=== PATIENT | female | born 1995 | race Caucasian/White ===

== ENCOUNTER → 2021-05-09 18:50 | Outpatient (CLI) | payer OTHER, SELFPAY | PROVIDERS: PCP Family Medicine; Visit Provider Nurse Practitioner Family | DX: K52.9 Noninfective gastroenteritis and colitis, unspecified (principal) | CPT/HCPCS: 87177 ==

== ENCOUNTER → 2021-05-10 14:00 | Outpatient (CLI) | payer OTHER, SELFPAY ==
[2021-05-10 14:08] LABS: Adenovirus F 40/41, stool Not Detected (NotDetected); Astrovirus Not Detected (NotDetected); Campylobacter Not Detected (NotDetected); Cryptosporidium Not Detected (NotDetected); Cyclospora Cayetanesis Not Detected (NotDetected); Entamoeba histolytica Not Detected (NotDetected); Enteroaggregative E coli Not Detected (NotDetected); Enteropathogenic E coli Not Detected (NotDetected); Enterotoxigenic E coli Not Detected (NotDetected); Giardia lamblia Not Detected (NotDetected); Norovirus Not Detected (NotDetected); Plesimonas Shigalloides, PCR Not Detected (NotDetected); Rotavirus A Not Detected (NotDetected); Salmonella, PCR Not Detected (NotDetected); Sapovirus Not Detected (NotDetected); Shiga-like toxin E coli Not Detected (NotDetected); Shigella Enterovasive E coli Not Detected (NotDetected); Vibrio Cholerae Not Detected (NotDetected); Vibrio, PCR Not Detected (NotDetected); Yersinia Entercolitica, PCR Not Detected (NotDetected)
[2021-05-10 22:07] LABS: Clostridium Difficile A/B, PCR Detected (NotDetected)
== END ==
PROVIDERS: Visit Provider Nurse Practitioner Family
DX: K52.9 Noninfective gastroenteritis and colitis, unspecified (principal); A04.72 Enterocolitis due to Clostridium difficile, not specified as recurrent
CPT/HCPCS: 87045; 87205; 87507

== ENCOUNTER 2021-05-14 11:07 | Emergency (ER) | payer OTHER, SELFPAY ==
[2021-05-14 11:09] VITALS: BP 134/74; PULSE 110; RESP 20; TEMP 37.1; O2SAT 98; BMI 27.2
[2021-05-14 11:29] VITALS: BMI 27.2
[2021-05-14 11:40] LABS: Coronavirus 19, PCR Not Detected (NotDetected); Influenza A, PCR Not Detected (NotDetected); Influenza B, PCR Not Detected (NotDetected)
[2021-05-14 11:52] VITALS: BP 134/72; PULSE 104; O2SAT 92
--- NOTE | 2021-05-14 11:55 | XR_ITS ---
PROCEDURE: XR CHEST 2V CLINICAL HISTORY: sob COMPARISON: No exams were available for comparison FINDINGS: The cardiomediastinal silhouette and pulmonary vascularity are within normal limits. The lungs are clear without infiltrates, suspicious nodules, or pleural effusions. No acute bony abnormalities. IMPRESSION: No acute findings. Dictated by: Caleb Hunt MD 05/14/2021 12:14 Caleb Hunt MD in [place] 05/14/2021 12:14
--- NOTE | 2021-05-14 12:29 | HMH.EDGENADL ---
ED Disposition Clinical Impression: Viral upper respiratory infection Disposition: Home, Self-Care Condition on Discharge: Good Instructions: DI for Viral Upper Respiratory Infection -- Adult, DI for COVID-19 (Suspected or Confirmed ) Additional Instructions: Tylenol or ibuprofen for any fever or pain. Robitussin for cough. Quarantine yourself until follow-up Covid test obtained. I recommend a repeat test in 2 days. COVID-19 Quarantine: Quarantine if you have been in close contact (within 6 feet of someone for a cumulative total of 15 minutes or more over a 24-hour period) with someone who has COVID-19, unless you have been fully vaccinated. People who are fully vaccinated do NOT need to quarantine after contact with someone who had COVID-19 unless they have symptoms. However, fully vaccinated people should get tested 3-5 days after their exposure, even if they don?t have symptoms and wear a mask indoors in public for 14 days following exposure or until their test result is negative. What to do Stay home for 14 days after your last contact with a person who has COVID-19. Watch for fever (100.4?F), cough, shortness of breath, or other symptoms of COVID-19. If possible, stay away from people you live with, especially people who are at higher risk for getting very sick from COVID-19. After quarantine: Watch for symptoms until 14 days after exposure. If you have symptoms, immediately self-isolate and contact your local public health authority or healthcare provider. You may be able to shorten your quarantine Your local public health authorities make the final decisions about how long quarantine should last, based on local conditions and needs. Follow the recommendations of your local public health department if you need to quarantine. Options they will consider include stopping quarantine: After day 10 without testing OR After day 7 after receiving a negative test result (test must occur on day 5 or later) Referrals: Joselyn Barger [Primary Care Provider] - - Critical Care Critical Care Time: No Attestation: On 05/14/21, the high probability of a clinically significant, sudden or life threatening deterioration of the following system(s) required my full and direct attention, intervention and personal management. The time I documented below is in addition to time spent performing reported procedures but includes the following listed in this critical care notation. Medical Decision Making - Amish Inquiry Pt receiving controlled substance: No Vital Signs: 05/14/21 11:09 05/14/21 11:52 Temperature 98.7 F Temperature Source Oral Pulse Rate 104 H Pulse Rate [Radial] 110 H Respiratory Rate 20 Blood Pressure 134/72 Blood Pressure [Right Arm] 134/74 Blood Pressure Mean 87 Blood Pressure Mean [Right Arm] 94 Blood Pressure Position [Right Arm] Sitting 02 Sat by Pulse Oximetry 98 92 L Oxygen Delivery Method Room Air - Lab Data Lab Results 05/14/21 11:35: SARS-CoV-2 (PCR) Not detected, Influenza A Untype (PCR) Not detected, Influenza Type B (PCR) Not detected 05/14/21 12:25: WBC 11.2 H, RBC 4.90, Hgb 13.5, Hct 41.9, MCV 85.4, MCH 27.4, MCHC 32.2, RDW 13.9, Plt Count 249, MPV 9.3, Neut % (Auto) 77.3, Lymph % (Auto) 9.7 L, [place] % (Auto) 8.1, Eos % (Auto) 4.5, Baso % (Auto) 0.4, Neut # (Auto) 8.6 H, Lymph # (Auto) 1.1, [place] # (Auto) 0.9, Eos # (Auto) 0.5 H, Baso # (Auto) 0.1 05/14/21 12:25: Sodium 141, Potassium 3.8, Chloride 106, Carbon Dioxide 27, Anion Gap 11.8, BUN 7, Creatinine 0.70, Estimated Creat Clear 169, Estimated GFR 103, Est GFR ( Amer) 124, Glucose 98, Calcium 9.1, Total Bilirubin 0.4, AST 101 H, ALT 92 H, Alkaline Phosphatase 84, Total Protein 6.6, Albumin 4.0, Globulin 2.6, Albumin/Globulin Ratio 1.5 05/14/21 12:25: Serum HCG, Qual Negative Result diagrams: 05/14/21 12:25 05/14/21 12:25 - Radiology Data #1 Image(s): Chest Image Reviewed: Yes I have reviewed radio
[2021-05-14 12:35] LABS: Basophils # 0.1 K/mm3 (0-0.2); Basophils % 0.4 % (0.1-2.0); Eosinophils # 0.5 K/mm3 (0.0-0.4); Eosinophils % 4.5 % (0.1-12.0); Hematocrit 41.9 % (37.0-47.0); Hemoglobin 13.5 g/dL (12.2-16.2); Lymphocytes # 1.1 K/mm3 (0.7-4.5); Lymphocytes % 9.7 % (10-50); Mean Corpuscular HGB Conc 32.2 g/dL (31.8-35.4); Mean Corpuscular Hemoglobin 27.4 pg (27.0-31.2); Mean Corpuscular Volume 85.4 fl (81-99); Mean Platelet Volume 9.3 fl (7.4-10.4); Monocytes # 0.9 K/mm3 (0.1-1.0); Monocytes % 8.1 % (1.7-9.3); Neutrophils # 8.6 K/mm3 (1.8-7.8); Neutrophils % 77.3 % (37.0-80.0); Platelet Count 249 K/mm3 (142-424); Red Cell Distribution Width 13.9 % (11.5-17.5); White Blood Count 11.2 K/mm3 (4.8-10.8)
[2021-05-14 12:37] LABS: Chloride 106 mmol/L (98-107); Potassium 3.8 mmoL/L (3.5-5.1); Sodium 141 mmol/L (136-145)
[2021-05-14 12:40] LABS: Alanine Aminotransferase 92 U/L (12-78); Albumin/Globulin Ratio 1.5 (1.1-1.8); Alkaline Phosphatase 84 U/L (38-126); Anion Gap 11.8 mEq/L (5-15); Aspartate Amino Transferase 101 U/L (14-36); Bilirubin,Total 0.4 mg/dl (0.2-1.3); Blood Urea Nitrogen 7 mg/dl (7-17); Carbon Dioxide 27 mmol/L (22.0-30.0); Creatinine Clearance Estimated 169 mL/min (50-200); Estimated Glomerular Filt Rate 103 ml/min (>60); GFR (African American) 124 ML/MIN (>60); Globulin 2.6 g/dL (1.3-3.2); Total Protein,Serum 6.6 g/dl (6.3-8.2)
[2021-05-14 12:41] LABS: Calcium 9.1 mg/dl (8.4-10.2); Glucose 98 mg/dl (74-100)
[2021-05-14 12:55] LABS: HCG Qualitative, Serum Negative (Negative)
[2021-05-14 14:24] VITALS: BP 112/74; PULSE 78; RESP 18; TEMP 36.6; O2SAT 98
== END 2021-05-14 14:25 | disposition home or self-care (01) ==
PROVIDERS: Emergency Provider Emergency Medicine; PCP Family Medicine
DX: J06.9 Acute upper respiratory infection, unspecified (principal); Z20.822 Contact with and (suspected) exposure to COVID-19
CPT/HCPCS: 71046; 80053; 84703; 85025; 99283; C9803; U0003; U0005

== ENCOUNTER 2021-05-19 09:41 | Emergency (ER) | payer OTHER, SELFPAY ==
[2021-05-19 10:03] VITALS: BP 115/87; PULSE 107; RESP 18; TEMP 36.8; O2SAT 98; BMI 27.8
[2021-05-19 10:10] VITALS: BP 115/87; PULSE 107; RESP 18; TEMP 36.8; O2SAT 98; BMI 27.8
--- NOTE | 2021-05-19 10:24 | HMH.EDUTC ---
[facility] [place] Disposition Clinical Impression: Allergic reaction Qualifiers: Encounter type: initial encounter Qualified Code(s): T78.40XA - Allergy, unspecified, initial encounter Disposition: Home, Self-Care Condition on Discharge: Good Instructions: DI for Hives, DI for General Allergic Reactions, Famotidine Additional Instructions: Over the counter Benadryl as directed on the package Start oral steriods tomorrow Stop taking Flagyl Follow up with Family Doctor to repeat your diarrhea panel to make sure Cdiff is clear Return if needed Prescriptions: predniSONE [Prednisone 20mg Tab] 20 mg PO BID 5 Days #10 tab Transmission Status: Received by [id number] Referrals: Joselyn Barger [Primary Care Provider] - As needed Medical Decision Making - Amish Inquiry Pt receiving controlled substance: No Amish was queried for this patient: No Vital Signs: 05/19/21 10:03 05/19/21 10:10 05/19/21 11:00 Temperature 98.3 F 98.3 F 98.3 F Temperature Source Oral Oral Pulse Rate 107 H Pulse Rate [Right Radial] 107 H 107 H Respiratory Rate 18 18 18 Blood Pressure 115/87 Blood Pressure [Right Arm] 115/87 115/87 Blood Pressure Mean [Right Arm] 96 96 Blood Pressure Source [Right Arm] Automatic Cuff Automatic Cuff Blood Pressure Position [Right Arm] Sitting Sitting 02 Sat by Pulse Oximetry 98 98 Oxygen Delivery Method Room Air Room Air - Lab Data Lab results reviewed: Yes: I reviewed the patient's lab results. Lab Results 05/19/21 10:31: Urine Color Dark yellow, Urine Appearance Clear, Urine pH 5.5, Ur Specific [place] 1.020, Urine Protein Negative, Urine Glucose (UA) Negative, Urine Ketones Negative, Urine Blood Negative, Urine Nitrate Negative, Urine Bilirubin Negative, Urine Urobilinogen 0.2, Ur Leukocyte Esterase 1+ A, Tst Clinic Negative Orders (Tests/Meds): ED MEDICATIONS Discontinued Medications Generic Name Dose Route Start Last Admin Trade Name Freq PRN Reason Stop Dose Admin Diphenhydramine HCl 25 mg 05/19/21 10:44 05/19/21 10:55 Diphenhydramine 50mg/Ml Vial IM 05/19/21 10:45 25 mg ONCE ONE Administration Famotidine 20 mg 05/19/21 10:44 05/19/21 10:55 Famotidine 20mg Tablet PO 05/19/21 10:45 20 mg ONCE ONE Administration Loratadine 10 mg 05/19/21 10:45 05/19/21 10:55 Loratadine 10mg Tablet PO 05/19/21 10:46 10 mg ONCE ONE Administration Methylprednisolone Sodium Succinate 125 mg 05/19/21 10:44 05/19/21 10:55 Methylprednisolone Sod Succ 125mg Vial IM 05/19/21 10:45 125 mg ONCE ONE Administration ORDERS Category Date Time Status Urine Culture Stat Micro 05/19/21 10:40 Received Medical Decision Narrative: Rash improved after medication [facility] [place] HPI - General Stated complaint: Rash all over body Time Seen by Provider: 05/19/21 10:24 Mode of Arrival: Ambulatory Source of Information: Patient Limitations: No Limitations Description of Symptoms (Recalled from Triage Doc. by RN): PATIENT HAD C-DIFF 7 DAYS AGO AND WAS STARTED ON FLAGYL. THIS MORNING SHE NOTICED A RASH TO CHEST, ARMS, PELVIC AREA AND LEGS. SHE REPORTS SHE HAS TAKEN FLAGYL BEFORE. HEENT Symptoms (Recalled from RN notes): No Resp Symptoms (Recalled from RN notes): No Skin Symptoms (Recalled from RN notes): Yes MS Symptoms (Recalled from RN notes): No Functional Status (Recalled from RN notes): WNL - History of Present Illness Provider Complaint: Patient states that she woke up this morning coved in hives States that she is itching and it has continued to get worse States that she hasnt changed anything at home but has been on Flagyl for Cdiff and not sure if she may be reacting to that but she has taken it in the past without reactions - Related Data Previous Rx's Medication Instructions Recorded predniSONE [Prednisone 20mg 20 mg PO BID 5 Days #10 tab 05/19/21 Tab] Allergies Allergy/AdvReac Type Severity Reaction Status Date / Time
[2021-05-19 10:40] LABS: Apearance,Urine Clear (Clear); Bilirubin,Urine Negative (Negative); Blood, Urine Negative (Negative); Color,Urine Dark Yellow (Yellow); Glucose,Urine (UA) Negative (Negative); Ketones,Urine Negative (Negative); PH,Urine 5.5 (5.0-8.5); Protein,Urine Negative (Negative); UTC Leukocyte Esterase,Urine 1+ (Negative); UTC Nitrate,Urine Negative (Negative); UTC Pregnancy Test, Urine Negative (Negative); Urobilinogen,Urine 0.2 EU/dl (0.2)
[2021-05-19 11:00] VITALS: BP 115/87; PULSE 107; RESP 18; TEMP 36.8; O2SAT 98
== END 2021-05-19 11:15 | disposition home or self-care (01) ==
LOC: ER 09:59 → UTC 10:00
PROVIDERS: Emergency Provider Nurse Practitioner; PCP Family Medicine
DX: T49.0X5A Adverse effect of local antifungal, anti-infective and anti-inflammatory drugs, initial encounter (principal)
CPT/HCPCS: 81003; 81025; 87086; 96372; 99202; G0463

== ENCOUNTER 2021-06-28 18:21 | Emergency (ER) | payer OTHER, SELFPAY ==
[2021-06-28 19:05] VITALS: BP 145/92; PULSE 106; RESP 14; TEMP 37.3; O2SAT 99; BMI 26.5
--- NOTE | 2021-06-28 19:24 | HMH.EDUTC ---
[facility] [place] Disposition Clinical Impression: Dysuria, Interstitial cystitis Disposition: Home, Self-Care Condition on Discharge: Good Instructions: DI for Interstitial Cystitis, DI for Dysuria -- Adult Additional Instructions: Drink plenty of fluids. Take tylenol or ibuprofen for pain or fever. Take the medications as directed. Follow up with your regular doctor. GO TO THE ER FOR ANY WORSENING SYMPTOMS We sent your urine for a culture. This will tell if it is truly an infection of your interstitial cystitis flaring up. The pyridium will make your urine turn orange, this is an expected side effect. It will stain your clothes if it comes into contact with them. Prescriptions: Sulfamethoxazole/Trimethoprim [Bactrim DS tablet] 1 each PO BID 5 Days #10 tab Transmission Status: Pending to [id number] Phenazopyridine HCl [Pyridium 200mg Tablet] 200 pow PO TID #6 tab Transmission Status: Pending to [id number] Referrals: Joselyn Barger [Primary Care Provider] - Time of Disposition: 19:38 Medical Decision Making - Medical Records Medical records reviewed: No: I reviewed the patient's medical records. - Amish Inquiry Pt receiving controlled substance: No Vital Signs: 06/28/21 19:05 Temperature 99.1 F Temperature Source Oral Pulse Rate [Left] 106 H Respiratory Rate 14 Blood Pressure [Left Arm] 145/92 H Blood Pressure Mean [Left Arm] 109 02 Sat by Pulse Oximetry 99 - Lab Data Lab results reviewed: Yes: I reviewed the patient's lab results. Lab Results 06/28/21 19:23: Urine Color Dark yellow, Urine Appearance Turbid, Urine pH 5.5, Ur Specific [place] 1.025, Urine Protein Negative, Urine Glucose (UA) Negative, Urine Ketones Negative, Urine Blood Negative, Urine Nitrate Negative, Urine Bilirubin Negative, Urine Urobilinogen 0.2, Ur Leukocyte Esterase Negative Orders (Tests/Meds): ORDERS Category Date Time Status Urine Culture Stat Micro 06/28/21 19:23 Ordered [facility] [place] HPI - General Stated complaint: possible uti Time Seen by Provider: 06/28/21 19:24 Mode of Arrival: Ambulatory Source of Information: Patient Limitations: No Limitations Description of Symptoms (Recalled from Triage Doc. by RN): pt c/o burning with urination x1 day. HEENT Symptoms (Recalled from RN notes): No Resp Symptoms (Recalled from RN notes): No Skin Symptoms (Recalled from RN notes): No MS Symptoms (Recalled from RN notes): No Functional Status (Recalled from RN notes): wnl - History of Present Illness Provider Complaint: She has had burning and discomfort with urination for the past 1 day. She has a history of interstitial cystitis. She is unsure if she has an infection or it is her interstitial cystitis flaring up. She denies any fever or chills. She does feel bad like she is getting an infection. - Related Data Previous Rx's Medication Instructions Recorded predniSONE [Prednisone 20mg 20 mg PO BID 5 Days #10 tab 05/19/21 Tab] Phenazopyridine HCl [Pyridium 200 pow PO TID #6 tab 06/28/21 200mg Tablet] Sulfamethoxazole/Trimethoprim 1 each PO BID 5 Days #10 tab 06/28/21 [Bactrim DS tablet] Allergies Allergy/AdvReac Type Severity Reaction Status Date / Time clindamycin Allergy Intermediate Rash Verified 05/14/21 11:33 topiramate [From Topamax] Allergy Verified 05/14/21 11:34 - Worker's Comp Is this a Worker's Comp case?: No [facility] History - Hepatitis A Screen Drug use history?: No High risk sexual behaviors?: No History of sexually transmitted infection?: No Currently employed?: No Childcare worker?: No Do you have indoor plumbing?: Yes Do you have electricity?: Yes Attestation statement:: This patient has been screened for Hepatitis A risk factors. I have reviewed the patient's past medical history: Yes ROS Obtained: Yes All systems reviewed & no additional complaints - Constitutional Constitutional: Denies body ache, Denies chills, Denies f
[2021-06-28 19:25] LABS: Apearance,Urine Turbid (Clear); Bilirubin,Urine Negative (Negative); Blood, Urine Negative (Negative); Color,Urine Dark Yellow (Yellow); Glucose,Urine (UA) Negative (Negative); Ketones,Urine Negative (Negative); PH,Urine 5.5 (5.0-8.5); Protein,Urine Negative (Negative); Specific Gravity, Urine 1.025 (1.005-1.030); UTC Leukocyte Esterase,Urine Negative (Negative); UTC Nitrate,Urine Negative (Negative); Urobilinogen,Urine 0.2 EU/dl (0.2)
[2021-06-28 19:53] VITALS: BP 145/92; PULSE 106; RESP 14; TEMP 37.3
== END 2021-06-28 19:55 | disposition home or self-care (01) ==
PROVIDERS: Emergency Provider Nurse Practitioner Family; PCP Family Medicine
DX: N30.10 Interstitial cystitis (chronic) without hematuria (principal)
CPT/HCPCS: 81003; 87086; 99202; G0463

== ENCOUNTER 2021-07-08 08:43 | Emergency (ER) | payer OTHER, SELFPAY ==
--- NOTE | 2021-07-08 09:00 | HMH.EDGENADL ---
ED Disposition Clinical Impression: COVID-19 Disposition: Home, Self-Care Condition on Discharge: Good Referrals: Joselyn Barger [Primary Care Provider] - - Critical Care Critical Care Time: No Attestation: On 07/08/21, the high probability of a clinically significant, sudden or life threatening deterioration of the following system(s) required my full and direct attention, intervention and personal management. The time I documented below is in addition to time spent performing reported procedures but includes the following listed in this critical care notation. Medical Decision Making - Medical Records Medical records reviewed: Yes: I reviewed the patient's medical records. - Amish Inquiry Pt receiving controlled substance: No Vital Signs: 07/08/21 09:10 Temperature 98.3 F Temperature Source Oral Pulse Rate [Right Radial] 105 H Respiratory Rate 18 Blood Pressure [Right Arm] 116/84 Blood Pressure Mean [Right Arm] 94 Blood Pressure Source [Right Arm] Automatic Cuff Blood Pressure Position [Right Arm] Supine 02 Sat by Pulse Oximetry 99 Oxygen Delivery Method Room Air - Lab Data Lab Results 07/08/21 09:27: Urine Color Yellow, Urine Appearance Sl cloudy, Urine pH 6.0, Ur Specific [place] >= 1.030, Urine Protein Negative, Urine Glucose (UA) Negative, Urine Ketones Negative, Urine Blood Trace-i, Urine Nitrate Negative, Urine Bilirubin 1+ A, Urine Urobilinogen 0.2, Ur Leukocyte Esterase Trace, Urine RBC Occasional, Urine WBC Occasional, Ur Squamous Epith Cells None, Urine Bacteria Trace 07/08/21 09:27: Urine HCG, Qual Negative 07/08/21 09:28: SARS-CoV-2 (PCR) Detected A, Influenza A Untype (PCR) Not detected, Influenza Type B (PCR) Not detected Orders (Tests/Meds): ED MEDICATIONS Discontinued Medications Generic Name Dose Route Start Last Admin Trade Name Freq PRN Reason Stop Dose Admin Lactated Ringer's 1,000 mls @ 999 mls/hr 07/08/21 09:15 07/08/21 09:36 Lactated Ringer's 1000 Ml Bag IV 07/08/21 10:15 999 mls/hr .Q1H1M EMELY Administration Promethazine HCl 12.5 mg 07/08/21 09:13 07/08/21 09:34 Promethazine Hcl 25mg/Ml 1ml Vial IV 07/08/21 09:14 12.5 mg ONCE ONE Administration Sodium Chloride 25 ml 07/08/21 09:13 07/08/21 09:34 Sodium Chloride 0.9% 25ml Bag IV 07/08/21 09:14 25 ml ONCE ONE Administration Medical Decision Narrative: Patient is a 25-year-old female presenting with a chief complaint of 4 days of nausea, vomiting and nonbloody diarrhea. Differential diagnosis includes, but is not limited to, infectious diarrhea, inflammatory bowel disease, viral syndrome such as COVID-19. Exam shows a benign, nondistended and nontender abdomen. Patient is mildly tachycardic on exam but otherwise hemodynamically stable. She was given 1 L of IV fluids and IV Phenergan. She was evaluate the UA and urine test and reassessed. Reassessment shows that patient is feeling improved. Testing is positive for COVID-19. Patient was given prescription for p.o. Phenergan, counseled on return precautions and supportive care at home. She was discharged in a stable condition. General Adult HPI - General Stated complaint: vomiting/diarrhea for 4 days Time Seen by Provider: 07/08/21 09:00 - History of Present Illness HPI narrative: Yarelis is a 25yo female with history of interstitial cystitis is presenting for chief complaint of 4 days of nausea, nonbloody vomiting and nonbloody watery diarrhea. Patient states she has not been able to tolerate p.o. intake despite taking Zofran at home. Patient denies fevers, chills, chest pain, dyspnea, or abdominal pain. She states she has some suprapubic discomfort but this is baseline due to her interstitial cystitis. She does have intermittent dysuria but no change from her baseline. She is late on her menstrual cycle. - Related Data Previous Rx's Medication Instructions Recorded predniSONE [Prednisone 20mg 20 mg PO
[2021-07-08 09:10] VITALS: BP 116/84; PULSE 105; RESP 18; TEMP 36.8; O2SAT 99; BMI 26.8
[2021-07-08 09:34] LABS: Microscopic, Urine URINE MICROSCOPIC (MICROSCOPIC)
[2021-07-08 09:36] LABS: Influenza A, PCR Not Detected (NotDetected); Influenza B, PCR Not Detected (NotDetected)
[2021-07-08 09:40] LABS: Appearance,Urine SL CLOUDY (Clear); Blood, Urine TRACE-I (Negative); Color,Urine YELLOW (Yellow); Glucose,Urine (UA) Negative (Negative); Ketones,Urine Negative (Negative); Leukocyte Esterase,Urine TRACE (Negative); Nitrate,Urine Negative (Negative); Protein,Urine Negative (Negative); Specific Gravity, Urine >= 1.030 (1.005-1.030); Urobilinogen,Urine 0.2 EU/dl (0.2)
[2021-07-08 09:41] LABS: Urine Pregnancy, HCG Qual. Negative (Negative)
[2021-07-08 09:45] LABS: Bilirubin,Urine 1+ (Negative)
[2021-07-08 09:52] LABS: Bacteria,Urine Trace /lpf; RBC,Urine Occasional #/hpf (0-3); WBC,Urine Occasional #/hpf (0-3)
[2021-07-08 10:01] LABS: Coronavirus 19, PCR Detected (NotDetected)
[2021-07-08 11:28] VITALS: BP 159/82; PULSE 69; RESP 18; TEMP 36.8; O2SAT 100
== END 2021-07-08 11:28 | disposition home or self-care (01) ==
PROVIDERS: Emergency Provider Emergency Medicine; PCP Family Medicine
DX: U07.1 COVID-19 (principal)
CPT/HCPCS: 81001; 81025; 96365; 99282; C9803; U0003; U0005

== ENCOUNTER → 2021-08-30 12:03 | Outpatient (CLI) | payer OTHER, SELFPAY ==
[2021-08-30 12:20] LABS: Adenovirus F 40/41, stool Not Detected (NotDetected); Astrovirus Not Detected (NotDetected); Campylobacter Not Detected (NotDetected); Cryptosporidium Not Detected (NotDetected); Cyclospora Cayetanesis Not Detected (NotDetected); Entamoeba histolytica Not Detected (NotDetected); Enteroaggregative E coli Not Detected (NotDetected); Enteropathogenic E coli Not Detected (NotDetected); Enterotoxigenic E coli Not Detected (NotDetected); Giardia lamblia Not Detected (NotDetected); Norovirus Not Detected (NotDetected); Plesimonas Shigalloides, PCR Not Detected (NotDetected); Rotavirus A Not Detected (NotDetected); Salmonella, PCR Not Detected (NotDetected); Sapovirus Not Detected (NotDetected); Shiga-like toxin E coli Not Detected (NotDetected); Shigella Enterovasive E coli Not Detected (NotDetected); Vibrio Cholerae Not Detected (NotDetected); Vibrio, PCR Not Detected (NotDetected); Yersinia Entercolitica, PCR Not Detected (NotDetected)
[2021-08-30 13:28] LABS: Occult Blood,Stool Negative (Negative)
[2021-08-30 18:41] LABS: Clostridium Difficile A/B, PCR Detected (NotDetected)
== END ==
PROVIDERS: Visit Provider Nurse Practitioner Family
DX: K52.9 Noninfective gastroenteritis and colitis, unspecified (principal); A04.72 Enterocolitis due to Clostridium difficile, not specified as recurrent
CPT/HCPCS: 82272; 87507; G0328

== ENCOUNTER 2021-09-18 08:32 | Emergency (ER) | payer OTHER, SELFPAY ==
[2021-09-18 08:32] VITALS: BP 153/105; PULSE 98; RESP 18; TEMP 36.9; O2SAT 97; BMI 25.5
--- NOTE | 2021-09-18 09:11 | PC.NURSE ---
Patient ambulatory to restroom
[2021-09-18 09:20] LABS: Microscopic, Urine URINE MICROSCOPIC (MICROSCOPIC)
[2021-09-18 09:23] LABS: Appearance,Urine CLEAR (Clear); Bilirubin,Urine Negative (Negative); Blood, Urine 3+ (Negative); Color,Urine YELLOW (Yellow); Glucose,Urine (UA) Negative (Negative); Ketones,Urine Negative (Negative); Leukocyte Esterase,Urine TRACE (Negative); Nitrate,Urine Negative (Negative); Protein,Urine TRACE (Negative); Specific Gravity, Urine 1.025 (1.005-1.030); Urobilinogen,Urine 0.2 EU/dl (0.2)
--- NOTE | 2021-09-18 09:25 | ECG_ITS ---
APPROVED REPORT Exam: Resting ECG HR:70 bpm ECG Measurements Heart Rate 70 AXES PA 150 P 51 QRSd 99 QRS 1 QT 395 T 4 QTc 415 Conclusion SINUS RHYTHM WITH MARKED SINUS ARRHYTHMIA BORDERLINE ECG UNCONFIRMED REPORT Electronically signed by : Alex Richardson MD 09/18/2021 18:02:23
--- NOTE | 2021-09-18 09:27 | XR_ITS ---
FINAL REPORT CLINICAL HISTORY: chest pain, left arm pain FINDINGS: Two views of the chest were obtained. The heart size and pulmonary vascularity are within normal limits. The mediastinum is normal. No acute pulmonary abnormality is identified. There is no pneumothorax. The bony thorax is intact. IMPRESSION: No active cardiopulmonary disease. Reviewed, Interpreted and Dictated by Gabriel Perez III, MD Transcribed by Wilver Stark Authenticated by Gabriel Perez III, MD on 09/18/2021 10:21:41 AM [facility]
--- NOTE | 2021-09-18 09:27 | PC.NURSE ---
Pt called out to the tech stating she was having chest pain. Assessed the pt who states she got a sharp pain in her left chest that went down her arm causing numbness. EKG and order placed for this new complaint.
[2021-09-18 09:30] VITALS: BP 133/94; PULSE 81; O2SAT 98
[2021-09-18 09:32] LABS: Basophils # 0.1 K/mm3 (0-0.2); Basophils % 0.7 % (0.1-2.0); Eosinophils # 0.2 K/mm3 (0.0-0.4); Eosinophils % 1.9 % (0.1-12.0); Hematocrit 44.6 % (37.0-47.0); Hemoglobin 14.5 g/dL (12.2-16.2); Lymphocytes # 1.6 K/mm3 (0.7-4.5); Lymphocytes % 15.5 % (10-50); Mean Corpuscular HGB Conc 32.5 g/dL (31.8-35.4); Mean Corpuscular Hemoglobin 29.8 pg (27.0-31.2); Mean Corpuscular Volume 91.7 fl (81-99); Mean Platelet Volume 10.2 fl (7.4-10.4); Monocytes # 0.6 K/mm3 (0.1-1.0); Monocytes % 5.5 % (1.7-9.3); Neutrophils # 7.8 K/mm3 (1.8-7.8); Neutrophils % 76.5 % (37.0-80.0); Platelet Count 355 K/mm3 (142-424); Red Blood Count 4.86 M/mm3 (4.20-5.40); Red Cell Distribution Width 14.2 % (11.5-17.5); White Blood Count 10.2 K/mm3 (4.8-10.8)
[2021-09-18 09:38] LABS: Amorphous Sediment,Urine 1+ /lpf; Bacteria,Urine Trace /lpf
--- NOTE | 2021-09-18 09:40 | PC.NURSE ---
Patient to xray with topography technician
--- NOTE | 2021-09-18 09:43 | PC.NURSE ---
pt to xray via wheelchair
[2021-09-18 10:00] VITALS: BP 142/90; PULSE 84; O2SAT 99
[2021-09-18 10:09] LABS: Alanine Aminotransferase 42 U/L (12-78); Albumin Level 4.5 g/dl (3.5-5.0); Albumin/Globulin Ratio 1.6 (1.1-1.8); Alkaline Phosphatase 99 U/L (38-126); Amylase 56 U/L (30-110); Anion Gap 13.7 mEq/L (5-15); Aspartate Amino Transferase 50 U/L (14-36); Bilirubin,Total 0.7 mg/dl (0.2-1.3); Blood Urea Nitrogen 5 mg/dl (7-17); Calcium 9.1 mg/dl (8.4-10.2); Carbon Dioxide 25 mmol/L (22.0-30.0); Chloride 104 mmol/L (98-107); Creatinine Clearance Estimated 138 mL/min (50-200); Estimated Glomerular Filt Rate 88 ml/min (>60); GFR (African American) 107 ML/MIN (>60); Globulin 2.8 g/dL (1.3-3.2); Glucose 113 mg/dl (74-100); Lipase 95 U/L (23-300); Potassium 3.7 mmoL/L (3.5-5.1); Sodium 139 mmol/L (136-145); Total Protein,Serum 7.3 g/dl (6.3-8.2)
--- NOTE | 2021-09-18 10:12 | HMH.EDGENADL ---
ED Disposition Clinical Impression: C. difficile enteritis Disposition: Home, Self-Care Condition on Discharge: Good Instructions: DI for Nausea -- Adult, DI for Diarrhea and Traveler's Diarrhea -- Adult, DI for Clostridioides difficile Infection Additional Instructions: Phenergan as needed for nausea and vomiting. Drink plenty of fluids. Follow-up with your primary care provider for gastroenterology referral, or call Dr. Elizalde for appointment. Prescriptions: Promethazine HCl [Phenergan 25mg tab] 25 mg PO Q6HP PRN #10 tab PRN Reason: Nausea And Vomiting Transmission Status: Pending to [id number] Referrals: Shea Saravia APRN [Primary Care Provider] - Brendna Elizalde [Referring] - - Critical Care Critical Care Time: No Attestation: On 09/18/21, the high probability of a clinically significant, sudden or life threatening deterioration of the following system(s) required my full and direct attention, intervention and personal management. The time I documented below is in addition to time spent performing reported procedures but includes the following listed in this critical care notation. Medical Decision Making - Amish Inquiry Pt receiving controlled substance: No Vital Signs: 09/18/21 08:32 Temperature 98.5 F Temperature Source Oral Pulse Rate [Left Radial] 98 H Respiratory Rate 18 Blood Pressure [Right Arm] 153/105 H Blood Pressure Mean [Right Arm] 121 Blood Pressure Source [Right Arm] Automatic Cuff Blood Pressure Position [Right Arm] Sitting 02 Sat by Pulse Oximetry 97 Oxygen Delivery Method Room Air - Lab Data Lab Results 09/18/21 08:45: WBC 10.2, RBC 4.86, Hgb 14.5, Hct 44.6, MCV 91.7, MCH 29.8, MCHC 32.5, RDW 14.2, Plt Count 355, MPV 10.2, Neut % (Auto) 76.5, Lymph % (Auto) 15.5, [place] % (Auto) 5.5, Eos % (Auto) 1.9, Baso % (Auto) 0.7, Neut # (Auto) 7.8, Lymph # (Auto) 1.6, [place] # (Auto) 0.6, Eos # (Auto) 0.2, Baso # (Auto) 0.1 09/18/21 08:45: Sodium 139, Potassium 3.7, Chloride 104, Carbon Dioxide 25, Anion Gap 13.7, BUN 5 L, Creatinine 0.80, Estimated Creat Clear 138, Estimated GFR 88, Est GFR ( Amer) 107, Glucose 113 H, Calcium 9.1, Total Bilirubin 0.7, AST 50 H, ALT 42, Alkaline Phosphatase 99, Troponin I < 0.01, Total Protein 7.3, Albumin 4.5, Globulin 2.8, Albumin/Globulin Ratio 1.6, Amylase 56, Lipase 95 09/18/21 09:16: Urine Color Yellow, Urine Appearance Clear, Urine pH 6.0, Ur Specific [place] 1.025, Urine Protein Trace, Urine Glucose (UA) Negative, Urine Ketones Negative, Urine Blood 3+, Urine Nitrate Negative, Urine Bilirubin Negative, Urine Urobilinogen 0.2, Ur Leukocyte Esterase Trace, Urine RBC 3-5, Urine WBC 10-20, Ur Squamous Epith Cells 3-5, Amorphous Sediment 1+, Urine Bacteria Trace Result diagrams: 09/18/21 08:45 09/18/21 08:45 Orders (Tests/Meds): ED MEDICATIONS Generic Name Dose Route Start Last Admin Trade Name Freq PRN Reason Stop Dose Admin Sodium Chloride 1,000 mls @ 999 mls/hr 09/18/21 09:30 09/18/21 09:30 Sod Chlor 0.9% 1000ml Bag IV 09/18/21 10:30 999 mls/hr .Q1H1M EMELY Administration Sodium Chloride 10 ml 09/18/21 09:25 Sodium Chloride 0.9% 10ml Flush Syringe IV 10/18/21 09:24 NEEDED PRN Maintain IV Site Discontinued Medications Generic Name Dose Route Start Last Admin Trade Name Freq PRN Reason Stop Dose Admin Ondansetron HCl 4 mg 09/18/21 09:26 09/18/21 09:30 Ondansetron 4mg/2ml Vial IV 09/18/21 09:27 4 mg ONCE ONE Administration ORDERS Category Date Time Status Troponin I Q3H Lab 09/18/21 12:30 Ordered Troponin I Q3H Lab 09/18/21 15:30 Ordered Urine Culture Stat Micro 09/18/21 09:16 Received - ECG Data Tracing #1 EKG interpreted by Kehinde Zuleta MD: Rhythm: sinus with sinus arrhythmia Rate: 70 [place]: normal Ectopy: none Conduction: normal ST Segment Changes: none T Wave Changes: none Q Waves: none No evidence of acute ischemia or injury Elyes
[2021-09-18 10:22] LABS: Troponin I < 0.01 ng/ml (0.00-0.034)
--- NOTE | 2021-09-18 10:22 | PC.NURSE ---
ED MD at for update on POC
[2021-09-18 10:30] VITALS: BP 138/101; PULSE 62; O2SAT 99
[2021-09-18 10:41] VITALS: BP 138/101; PULSE 62; RESP 16; TEMP 36.9; O2SAT 99
== END 2021-09-18 10:47 | disposition home or self-care (01) ==
PROVIDERS: Emergency Provider Emergency Medicine; PCP Nurse Practitioner Family
DX: A04.72 Enterocolitis due to Clostridium difficile, not specified as recurrent (principal); R42 Dizziness and giddiness; R07.9 Chest pain, unspecified
CPT/HCPCS: 71046; 80053; 81001; 82150; 83690; 84484; 85025; 87086; 93005; 96365; 96375; 99284; J2405

== ENCOUNTER → 2021-10-02 13:06 | Outpatient (CLI) | payer OTHER, SELFPAY ==
[2021-10-03 16:13] LABS: C difficile Toxins AB, EIA Negative (Negative)
== END ==
PROVIDERS: Family Medicine; Visit Provider Nurse Practitioner Family
DX: R19.7 Diarrhea, unspecified (principal)
CPT/HCPCS: 87045; 87324

== ENCOUNTER 2022-01-23 20:04 | Emergency (ER) | payer OTHER, SELFPAY ==
[2022-01-23 21:22] VITALS: BP 157/108; PULSE 107; RESP 16; TEMP 36.5; O2SAT 100; BMI 35.7
[2022-01-23 21:38] LABS: Microscopic, Urine URINE MICROSCOPIC (MICROSCOPIC)
[2022-01-23 21:42] LABS: Basophils # 0.1 K/mm3 (0-0.2); Basophils % 0.9 % (0.1-2.0); Eosinophils # 0.5 K/mm3 (0.0-0.4); Eosinophils % 5.2 % (0.1-12.0); Hematocrit 42.1 % (37.0-47.0); Hemoglobin 14.5 g/dL (12.2-16.2); Lymphocytes # 2.8 K/mm3 (0.7-4.5); Lymphocytes % 26.5 % (10-50); Mean Corpuscular HGB Conc 34.3 g/dL (31.8-35.4); Mean Corpuscular Hemoglobin 29.6 pg (27.0-31.2); Mean Corpuscular Volume 86.3 fl (81-99); Mean Platelet Volume 9.2 fl (7.4-10.4); Monocytes # 0.6 K/mm3 (0.1-1.0); Monocytes % 5.6 % (1.7-9.3); Neutrophils # 6.4 K/mm3 (1.8-7.8); Neutrophils % 61.8 % (37.0-80.0); Platelet Count 274 K/mm3 (142-424); Red Blood Count 4.88 M/mm3 (4.20-5.40); Red Cell Distribution Width 13.3 % (11.5-17.5); White Blood Count 10.4 K/mm3 (4.8-10.8)
[2022-01-23 21:44] LABS: Bilirubin,Urine Negative (Negative); Blood, Urine Negative (Negative); Color,Urine YELLOW (Yellow); Glucose,Urine (UA) Negative (Negative); Ketones,Urine Negative (Negative); Leukocyte Esterase,Urine 1+ (Negative); Nitrate,Urine Negative (Negative); Protein,Urine Negative (Negative); Urine Pregnancy, HCG Qual. Negative (Negative); Urobilinogen,Urine 0.2 EU/dl (0.2)
[2022-01-23 21:45] LABS: Appearance,Urine Cloudy (Clear)
[2022-01-23 21:50] LABS: Chloride 108 mmol/L (98-107)
[2022-01-23 21:51] LABS: Potassium 3.9 mmoL/L (3.5-5.1); Sodium 140 mmol/L (136-145)
[2022-01-23 21:52] LABS: Alanine Aminotransferase 32 U/L (12-78); Aspartate Amino Transferase 39 U/L (14-36); Bilirubin,Unconjugated 0.2 mg/dL (0.0-1.1); Blood Urea Nitrogen 6 mg/dl (7-17); Creatinine Clearance Estimated 189 mL/min (50-200); Estimated Glomerular Filt Rate 102 ml/min (>60); GFR (African American) 123 ML/MIN (>60)
[2022-01-23 21:53] LABS: Albumin Level 4.3 g/dl (3.5-5.0); Alkaline Phosphatase 79 U/L (38-126); Anion Gap 11.9 mEq/L (5-15); Bilirubin,Direct 0.1 mg/dl (0.0-0.4); Bilirubin,Indirect 0.1 mg/dL (0.0-0.9); Bilirubin,Total 0.2 mg/dl (0.2-1.3); Calcium 10.3 mg/dl (8.4-10.2); Carbon Dioxide 24 mmol/L (22.0-30.0); Glucose 99 mg/dl (74-100); Total Protein,Serum 6.9 g/dl (6.3-8.2)
[2022-01-23 21:58] LABS: Bacteria,Urine 2+ /lpf; RBC,Urine Occasional #/hpf (0-3)
--- NOTE | 2022-01-23 22:01 | PC.NURSE ---
md at bedside present with soniya marsh for vaginal exam
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
[2022-01-23 22:53] VITALS: BP 147/87; PULSE 90; RESP 16; TEMP 36.5; O2SAT 100
[2022-01-25 07:26] LABS: HIV Screen 4th Generation wRfx Non Reactive (Non Reactive)
[2022-01-27 22:10] LABS: Neisseria gonorrhoeae, NAA Negative (Negative)
== END 2022-01-23 23:04 | disposition home or self-care (01) ==
PROVIDERS: Emergency Provider Emergency Medicine; PCP Nurse Practitioner Family
DX: N39.0 Urinary tract infection, site not specified (principal); B95.1 Streptococcus, group B, as the cause of diseases classified elsewhere; N76.0 Acute vaginitis
CPT/HCPCS: 80048; 80076; 81001; 81025; 85025; 86703; 87086; 87088; 87186; 87210; 87220; 87252; 87491; 87591; 99212; G0432; G0463

== ENCOUNTER 2022-02-25 15:30 | Emergency (ER) | payer OTHER, SELFPAY ==
[2022-02-25 16:02] VITALS: BP 149/105; PULSE 97; RESP 17; TEMP 36.7; O2SAT 99; BMI 27.1
--- NOTE | 2022-02-25 16:38 | HMH.EDUTC ---
[facility] Disposition Clinical Impression: Need for Tdap vaccination Laceration of left thumb Qualifiers: Encounter type: initial encounter Damage to nail status: without damage Foreign body presence: without foreign body Qualified Code(s): S61.012A - Laceration without foreign body of left thumb without damage to nail, initial encounter Disposition: Home, Self-Care Condition on Discharge: Good Instructions: Mupirocin, Tetanus, Diphtheria, Pertussis (Tdap) Vaccine Additional Instructions: Keep the wound clean and dry. Keep a dressing on it if she is you are going to be getting it dirty. Watch the for signs of infection, such as redness, swelling, drainage, fever. etc. Take tylenol or ibuprofen for pain. Follow up with your regular doctor. GO TO THE ER FOR ANY WORSENING SYMPTOMS OR CONCERNS. Prescriptions: Mupirocin [Bactroban 2% Ointment 22gm tube] 1 applicatio TP TID 7 Days #1 gm Transmission Status: Received by [id number] Referrals: Shea Saravia APRN [Primary Care Provider] - Time of Disposition: 16:41 Medical Decision Making - Medical Records Medical records reviewed: No: I reviewed the patient's medical records. - Amish Inquiry Pt receiving controlled substance: No Vital Signs: 02/25/22 16:02 02/25/22 17:02 Temperature 98.0 F 98.0 F Temperature Source Oral Pulse Rate 97 H Pulse Rate [Left] 97 H Respiratory Rate 17 17 Blood Pressure 149/105 H Blood Pressure [Right Arm] 149/105 H Blood Pressure Mean [Right Arm] 119 02 Sat by Pulse Oximetry 99 Orders (Tests/Meds): ED MEDICATIONS Discontinued Medications Generic Name Dose Route Start Last Admin Trade Name Freq PRN Reason Stop Dose Admin Tetanus/Diphtheria Toxoids 0.5 ml 02/25/22 16:29 02/25/22 16:31 Tetanus-Diphth Toxoid, Adult 0.5ml Syr IM 02/25/22 16:30 0.5 ml .ONCE ONE Administration [facility] HPI - General Stated complaint: [id number]/23@1515 lac to left thumb Time Seen by Provider: 02/25/22 16:35 Mode of Arrival: Ambulatory Source of Information: Patient Limitations: No Limitations Description of Symptoms (Recalled from Triage Doc. by RN): patient comes in for cut on thumb. patient was cleaning oven and cut her thumb. 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 She is here because her tetanus immunization is not up to date. - Related Data Previous Rx's Medication Instructions Recorded predniSONE [Prednisone 20mg 20 mg PO BID 5 Days #10 tab 05/19/21 Tab] Phenazopyridine HCl [Pyridium 200 pow PO TID #6 tab 06/28/21 200mg Tablet] Sulfamethoxazole/Trimethoprim 1 each PO BID 5 Days #10 tab 06/28/21 [Bactrim DS tablet] Promethazine HCl [Phenergan 12.5mg 0 mg PO TID #9 tab 07/08/21 tablet] Promethazine HCl [Phenergan 25mg 25 mg PO Q6HP PRN #10 tab 09/18/21 tab] Fluconazole [Diflucan 100mg tablet] 100 mg PO DAILY #5 tab 01/23/22 levoFLOXacin [Levaquin 500mg 500 mg PO DAILY #7 tab 01/23/22 tab] metroNIDAZOLE [metroNIDAZOLE 500mg 500 mg PO TID #30 tab 01/23/22 Tablet] Mupirocin [Bactroban 2% Ointment 1 applicatio TP TID 7 Days #1 gm 02/25/22 22gm tube] Allergies Allergy/AdvReac Type Severity Reaction Status Date / Time clindamycin Allergy Intermediate Rash Verified 02/25/22 16:08 topiramate [From Topamax] Allergy Verified 02/25/22 16:08 - Worker's Comp Is this a Worker's Comp case?: No [facility] History - Hepatitis A Screen Attestation statement:: This patient has been screened for Hepatitis A risk factors. I have reviewed the patient's past medical history: Yes ROS Obtained: Yes All sys
[2022-02-25 17:02] VITALS: BP 149/105; PULSE 97; RESP 17; TEMP 36.7
== END 2022-02-25 17:03 | disposition home or self-care (01) ==
PROVIDERS: Emergency Provider Nurse Practitioner Family; PCP Nurse Practitioner Family
DX: S61.012A Laceration without foreign body of left thumb without damage to nail, initial encounter (principal); Z23 Encounter for immunization; Y93.E9 Activity, other interior property and clothing maintenance
CPT/HCPCS: 90471; 90714; 99212; G0463

== ENCOUNTER 2022-05-02 19:02 | Emergency (ER) | payer OTHER, SELFPAY ==
--- NOTE | 2022-05-02 19:07 | XR_ITS ---
PROCEDURE INFORMATION: Exam: XR Right Ankle Exam date and time: 05/02/2022 7:11 PM Age: 26 years old Clinical indication: Injury or trauma; Fall; Sprain or strain; Ankle; Right; Additional info: Fell off of a step ladder TECHNIQUE: Imaging protocol: Radiologic exam of the Right ankle. Views: 3 or more views. COMPARISON: No relevant prior studies available. FINDINGS: Bones/joints: There is no evidence of acute fracture. There is no evidence of joint malalignment or dislocation. Soft tissues: No focal soft tissue swelling. IMPRESSION: 1. No evidence of acute fracture. 2. No evidence of acute dislocation.
[2022-05-02 19:30] VITALS: BP 131/92; PULSE 91; RESP 19; TEMP 36.8; O2SAT 98; BMI 30.4
--- NOTE | 2022-05-02 19:50 | EXP.UTC ---
Discharge Plan Disposition Patient Disposition: Home, Self-Care Condition: Good Prescriptions Prescriptions: No Action phenazopyridine 200 MG tablet 200 pow PO TID Qty: 6 0RF sulfamethoxazole-trimethoprim 1 EACH tablet 1 each PO BID 5 Days Qty: 10 0RF promethazine 12.5 MG tablet 0 mg PO TID Qty: 9 0RF metronidazole 500 MG tablet 500 mg PO TID Qty: 30 0RF levofloxacin 500 MG tablet 500 mg PO DAILY Qty: 7 0RF fluconazole 100 MG tablet 100 mg PO DAILY Qty: 5 0RF mupirocin 22 GM ointment 1 applicatio TP TID 7 Days Qty: 1 0RF prednisone 20 MG tablet 20 mg PO BID 5 Days Qty: 10 0RF promethazine 25 MG tablet 25 mg PO Q6HP PRN (Reason: Nausea And Vomiting) Qty: 10 0RF Referrals Follow up/Referrals: Podiatry [Provider Group] - See instructions ([phone]) Darren Saravia [Primary Care Provider] - See instructions Brianne Berrios DPM [Staff Physician] - See instructions Activity Restrictions/Add. Instructions Additional Instructions/Restrictions: *weight bearing as tolerated *RICE, Rest the extremity, Ice 15-20 minutes 3-4 times daily, Compress- wear the ryder wrap as discussed as much as possible to help reduce swelling and pain, Elevate the extremity when at rest *Walking boot is for support and help control swelling, use it except in the shower. Be sure that is not to tight but not to loose either *Elevate when resting? *Ibuprofen 600-800mg every 6-8 hours as needed for pain an inflammation. If need something more can take Tylenol in between doses of Ibuprofen to help Immediately follow up with your family doctor for new or worsening of symptoms, or no noticeable improvement over the next 3-5 days Follow up with Podiatry if you continue to have pain and swelling Return if needed Straight to ER if any life threatening symptoms Clinical Impressions Clinical Impression: Ankle sprain Instructions Patient Instructions: How To Perform RICE (Rest, Ice, Compress, Elevate), Ankle Sprain, DI for Ankle Sprain Discharge ED Provider: Purvi Cavazos [facility] General Stated complaint: AO 05/02/22 3280 injury to right ankle Mode of Arrival: Ambulatory Source of Information: Patient Limitations: No Limitations Time Seen by Provider: 05/02/22 19:50 Description of Symptoms (Recalled from Triage Doc. by RN): pt comes in with c/o right ankle pain. pt was stepping off step ladder and missed a step. HEENT Symptoms (Recalled from RN notes): No Resp Symptoms (Recalled from RN notes): No Skin Symptoms (Recalled from RN notes): No MS Symptoms (Recalled from RN notes): Yes Functional Status (Recalled from RN notes): n/a History of Present Illness Provider Complaint: Patient states that she was stepping off small step ladder when she missed the last step and rolled her right ankle States that ever since she has been having pain and swelling in her ankle States that she has been unable to put weight on it due to the pain so they brought her in Related Data Previous Rx's Medication Instructions Recorded prednisone 20 mg tablet 20 mg PO BID 5 days #10 tabs 05/19/21 phenazopyridine 200 mg tablet 200 pow PO TID #6 tabs 06/28/21 sulfamethoxazole 800 1 each PO BID 5 days #10 tabs 06/28/21 mg-trimethoprim 160 mg tablet promethazine 12.5 mg tablet 0 mg PO TID Nausea & vomiting #9 07/08/21 tabs promethazine 25 mg tablet 25 mg PO Q6HP PRN Nausea And 09/18/21 Vomiting #10 tabs fluconazole 100 mg tablet 100 mg PO DAILY #5 tabs 01/23/22 levofloxacin 500 mg tablet 500 mg PO DAILY #7 tabs 01/23/22 metronidazole 500 mg tablet 500 mg PO TID #30 tabs 01/23/22 mupirocin 2 % topical ointment 1 applicatio topical TID 7 days #1 02/25/22 g Allergies Allergy/AdvReac Type Severity Reaction Status Date / Time clindamycin Allergy Intermediate Rash Verified 05/02/22 19:24 topiramate [From Topamax] Allergy Verified 05/02/22 19:24 Worker's Comp Is this a Worker's Comp case?: No PFSH PFSH Socia
[2022-05-02 20:07] VITALS: BP 131/92; PULSE 91; RESP 19; TEMP 36.8
== END 2022-05-02 20:13 | disposition home or self-care (01) ==
PROVIDERS: Emergency Provider Nurse Practitioner; PCP Family Medicine
DX: S93.401A Sprain of unspecified ligament of right ankle, initial encounter (principal); W18.49XA Other slipping, tripping and stumbling without falling, initial encounter
CPT/HCPCS: 29515; 73610; 99213; G0463

== ENCOUNTER 2025-06-12 11:22 | Emergency (ER) | payer OTHER, SELFPAY ==
[2025-06-12 11:23] VITALS: BP 137/96; PULSE 84; RESP 20; TEMP 36.9; O2SAT 100; BMI 25.1
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
[2025-06-12 11:30] VITALS: BP 128/91; PULSE 95; RESP 19; O2SAT 100
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
[2025-06-12 11:47] LABS: Hematocrit 38.6 % (37.0-47.0); Hemoglobin 13.4 g/dL (12.2-16.2); Immature Granulocytes % 0.3 %; Mean Corpuscular HGB Conc 34.7 g/dL (31.8-35.4); Mean Corpuscular Hemoglobin 30.5 pg (27.0-31.2); Mean Corpuscular Volume 87.9 fl (81-99); Nucleated Red Blood Cells % 0 %; Platelet Count 322 K/mm3 (142-424); Red Blood Count 4.39 M/mm3 (4.20-5.40); Red Cell Distribution Width-SD 39.9 fL; White Blood Count 8.0 K/mm3 (4.8-10.8)
[2025-06-12] MEDS: HYDROMORPHONE 2MG/ML SYRINGE 0.5 MG IV (11:51)
[2025-06-12] MEDS: ONDANSETRON 4MG/2ML VIAL 4 MG IV (11:52)
[2025-06-12 11:53] LABS: HCG Qualitative, Serum Negative (Negative)
[2025-06-12 11:54] LABS: Alanine Aminotransferase 24 U/L (12-78); Albumin Level 4.6 g/dl (3.5-5.0); Albumin/Globulin Ratio 1.4 (1.1-1.8); Alkaline Phosphatase 84 U/L (38-126); Anion Gap 16.9 mEq/L (5-15); Aspartate Amino Transferase 30 U/L (14-36); Bilirubin,Total 0.5 mg/dl (0.2-1.3); Blood Urea Nitrogen 8 mg/dl (7-17); Calcium 9.5 mg/dl (8.4-10.2); Carbon Dioxide 21 mmol/L (22.0-30.0); Chloride 107 mmol/L (98-107); Creatinine Clearance Estimated 131 mL/min (50-200); Creatinine,Serum 0.80 mg/dl (0.52-1.04); Estimated Glomerular Filt Rate 85 ml/min (>60); GFR (African American) 103 ML/MIN (>60); Globulin 3.2 g/dL (1.3-3.2); Glucose 87 mg/dl (74-100); Potassium 3.9 mmoL/L (3.5-5.1); Sodium 141 mmol/L (136-145); Total Protein,Serum 7.8 g/dl (6.3-8.2)
[2025-06-12] MEDS: SODIUM CHLORIDE 0.9% 10ML SYR (RAD ONLY) 10 ML IV (12:10)
[2025-06-12] MEDS: IOPAMIDOL-370 (76%);100ML BOTTLE 80 ML IV (12:10)
[2025-06-12] MEDS: 0.9 % SODIUM CHLORIDE 50 ML VIAL IV (12:10)
[2025-06-12 12:13] LABS: Microscopic, Urine URINE MICROSCOPIC (MICROSCOPIC)
[2025-06-12 13:22] VITALS: BP 121/92; PULSE 70; RESP 20; TEMP 36.9; O2SAT 98
[2025-06-12 17:13] LABS: Bilirubin,Urine Negative (Negative); Color,Urine YELLOW (Yellow); Glucose,Urine (UA) Negative (Negative); Ketones,Urine Negative (Negative); Leukocyte Esterase,Urine Negative (Negative); PH,Urine 6.5 (5.0-8.5); Protein,Urine Negative (Negative); Specific Gravity, Urine 1.020 (1.005-1.030); Urobilinogen,Urine 0.2 EU/dl (0.2)
[2025-06-12 17:27] LABS: Amorphous Sediment,Urine 2+ /lpf
== END 2025-06-12 13:39 | disposition home or self-care (01) ==
PROVIDERS: Physician Assistant; Emergency Provider Emergency Medicine; PCP Family Medicine
DX: R07.89 Other chest pain (principal); R10.12 Left upper quadrant pain; S80.812A Abrasion, left lower leg, initial encounter; V47.6XXA Car passenger injured in collision with fixed or stationary object in traffic accident, initial encounter
CPT/HCPCS: 71275; 73562; 73590; 73610; 74177; 80053; 81001; 84703; 85025; 96374; 96375; 99285; J1171; J2405; Q9967